=== PATIENT | female | born 1955 | race Caucasian/White ===

== ENCOUNTER 2018-07-11 10:08 | Day surgery (SDC) | payer OTHER ==
[~2018-07-11] VITALS: Ht 152.4 cm; Wt 80.7 kg
[~2018-07-11 10:08] MED LIST: BUSP10TA2 PO; IBUP-1542 PO; LORA-401 PO; LOSA50TA2 PO; VENL150C PO; asa BC
[2018-07-11 10:58] VITALS: Ht 152.4 cm; Wt 80.7 kg
[2018-07-11] MEDS ORDERED: LIDOCAINE 4% SOLUTION 50 ML BTL ONE (10:58)
[2018-07-11] MEDS ORDERED: ASPI-903 PO (11:07)
[2018-07-11] MEDS ORDERED: GABAPENTIN (11:07)
[2018-07-11] MEDS ORDERED: VITAMIN D3 (11:07)
[2018-07-11] MEDS ORDERED: MELOXICAM (11:07)
[2018-07-11] MEDS ORDERED: ATORVASTATIN (11:07)
[2018-07-11 11:10] VITALS: BP 154/72; PULSE 57; RESP 13
--- NOTE | 2018-07-11 11:32 | PREAC ---
Date/Time of Note Date/Time of Note DATE: 07/11/18 TIME: 11:30 Anesthesia Eval and Record Evaluation Time Pre-Procedure Interview DATE: 07/11/18 TIME: 11:30 Age 63 Sex female NPO: 8 hrs Preoperative diagnosis abd pain Planned procedure EGD Past Medical History Past Medical History: Includes Cardio: HTN, Dyslipidemia Neuro: Peripheral neuropathy Musculoskeletal: Osteoarthritis GI: GERD Psych: Depression, Anxiety Surgery & Anesthesia Issues No known issue Meds Anticoagulation: No Beta Tiarra within 24 hr: No Reason Beta Tiarra not given: Pt. not on B-Tiarra Reported Medications [Meloxicam] No Conflict Check 07/11/18 [Gabapentin] No Conflict Check 07/11/18 [Vitamin D3] No Conflict Check 07/11/18 [Atorvastatin] No Conflict Check 07/11/18 Aspirin* (Aspirin* Chew) 81 Mg Tab.chew, 81 MG PO DAILY, TAB.CHEW 07/11/18 Ibuprofen* (Ibuprofen*) 600 Mg Tablet, 600 MG PO bib 05/25/12 Buspirone Hcl* (Buspirone Hcl*) 10 Mg Tablet, 10 MG PO daily 05/25/12 Lorazepam* (Ativan*) 1 Mg Tablet, 1 MG PO daily 05/25/12 Losartan Potassium* (Cozaar*) 50 Mg Tablet, 50 MG PO daily 05/25/12 Discontinued Reported Medications Venlafaxine Hcl* (Effexor XR*) 150 Mg Cap.sr.24h, 150 MG PO daily 05/25/12 [asa] No Conflict Check, 81 MG BC daily 05/25/12 Meds reviewed: Yes Allergies Coded Allergies: Penicillins (Unverified Allergy, Unknown, 08/02/15) Allergies Reviewed: Yes Labs/Studies Labs Reviewed: Reviewed by anesthesiologist test: Negative Studies: ECG, CXR Pre-procedure Exam Last vitals Vital Signs Date Temp Pulse Resp B/P (MAP) Pulse Ox O2 O2 Flow FiO2 Time Delivery Rate 07/11/18 98.0 57 13 154/72 100 11:10 (99) Airway: Adequate mouth opening, Adequate thyromental dist Mallampati: Mallampati III Teeth: Normal Lung: Normal Heart: Normal ASA Physical Status ASA physical status: 3 Emergency: None Planned Anesthetic General/MAC: MAC Planned Pain Management Parenteral pain med Pre-operative Attestations Prior to commencing anesthesia and surgery, the patient was re-evaluated, there was verification of: *The patient's identity *The results of appropriate recent lab work and preoperative vital signs *The above evaluation not changing prior to induction *Anesthetic plan, risk benefits, alternative and complications discussed with patient/family; questions answered; patient/family understands, accepts and wi shes to proceed. YESICA LANDRY MD Jul 11, 2018 11:32
[2018-07-11] MEDS ORDERED: PROPOFOL 20 ML ONE ×2 (11:33)
[2018-07-11 12:23] VITALS: BP 142/71; RESP 18
--- NOTE | 2018-07-11 16:35 | PAC ---
Date/Time of Note Date/Time of Note DATE: 07/11/18 TIME: 16:35 Post-Anesthesia Notes Post-Anesthesia Note Last documented vital signs Vital Signs Date Temp Pulse Resp B/P (MAP) Pulse Ox O2 O2 Flow FiO2 Time Delivery Rate 07/11/18 18 142/71 95 12:23 (94) 07/11/18 98.0 57 11:10 Activity: WNL Respiratory function: WNL Cardiovascular function: WNL Mental status: Baseline Pain reasonably controlled: Yes Hydration appropriate: Yes Nausea/Vomiting absent: Yes YESICA LANDRY MD Jul 11, 2018 16:35
== END 2018-07-11 16:51 | disposition home or self-care (01) ==
LOC: GIL 10:08
PROVIDERS: ATTEND Internal Medicine Gastroenterology
DX: K44.9 Diaphragmatic hernia without obstruction or gangrene (principal); K20.0 Eosinophilic esophagitis
CPT/HCPCS: 43239; 88305; 88312; 88313; Z7610